=== PATIENT | female | born 1980 | race Caucasian/White ===

== ENCOUNTER 2018-10-24 02:03 | Emergency (ER) | payer OTHER ==
[~2018-10-24] VITALS: Ht 172.7 cm; Wt 113.9 kg
--- NOTE | 2018-10-24 02:10 | NUR ---
PT RECEIVED AMBULATORY FROM HOME. BIB FAMILY, WITH STABLE GAIT, APPEARS ANXIOUS, C/O NAUSEA AND DIZZINESS FOR 3HRS CLOTH PRESSER ABLE TO SPEAK CLEARLY AND IN COMPLETE SENTENCES. AOX4 BUT EASILY GETS CONFUSED. STATES "DIZZY" DENIES TINNITUS, DENIES DIARRHEA, DENIES FEVERS/ CHILLS, DENIES RECENT TRAVEL, DENIES EARPAIN, DENIES CHST PAIN, DENIES LOC MD AT BEDSIDE FOR HX AND PHYSICAL
[2018-10-24] MEDS ORDERED: MECLIZINE HCL 25 MG TABLET PO ONE (02:30)
[2018-10-24] MEDS ORDERED: MECLIZINE HCL 25 MG TABLET ONE (02:32)
--- NOTE | 2018-10-24 02:35 | NUR ---
EKG NOTE: Test delayed, patient initially refused until education provided by MONIQUE.
--- NOTE | 2018-10-24 02:45 | NUR ---
RN MOBILE AT BEDSIDE PT NAD SIDERAILS UP X2, REASSURED ORTHOSTATICS FOLLOWS: SUPINE: 127/70MMHG HR 73 +STATES DIZZINESS SITTIN/64 MMHG HR 72 STANDIN/88MMHG HR 78 +STATES SOME DIZZINESS
[2018-10-24 03:01] LABS: BASOPHILS # (AUTO) 0.1 K/uL (0.0-8.0); BASOPHILS % (AUTO) 1.3 % (0.0-2.0); EOSINOPHILS # (AUTO) 0.2 K/uL (0.0-0.7); EOSINOPHILS % (AUTO) 2.5 % (0.0-7.0); HEMATOCRIT 36.5 % (31.2-41.9); HEMOGLOBIN 12.6 g/dL (10.9-14.3); LYMPHOCYTES # (AUTO) 2.7 K/uL (20.0-40.0); MEAN CORPUSCULAR HEMOGLOBIN 28.6 uug (24.7-32.8); MEAN CORPUSCULAR HGB CONC 35 g/dL (32.3-35.6); MEAN CORPUSCULAR VOLUME 83.1 fL (75.5-95.3); MONOCYTES # (AUTO) 0.6 K/uL (2.0-10.0); MONOCYTES % (AUTO) 7.7 % (0.0-11.0); NEUTROPHILS # (AUTO) 4.3 K/uL (1.8-8.9); NEUTROPHILS % (AUTO) 54.5 % (38.5-71.5); PLATELET COUNT (AUTO) 266 K/uL (179-408)
[2018-10-24 03:15] LABS: CREATININE 0.6 mg/dL (0.6-1.3); POTASSIUM 3.6 mmol/L (3.5-5.1)
[2018-10-24 03:19] LABS: *URINE HCG, QUAL NEGATIVE (NEGATIVE)
[2018-10-24] MEDS ORDERED: ONDANSETRON ODT 4 MG TAB.RAPDIS SL ONE (03:45)
[2018-10-24] MEDS ORDERED: ONDANSETRON ODT 4 MG TAB.RAPDIS ONE (03:45)
--- NOTE | 2018-10-24 03:52 | NUR ---
PT NAD, ABLE TO TOLERATE MEDS ORDERED. Patient discharged to home in stable conditon. Written and verbal after care instructions given. Patient verbalizes understanding of instructions. AMBULATORY WITH STABLE GAIT. ALL BELONGINGS WITH PATIENT
[2018-10-24 03:55] VITALS: BP 103/64
== END 2018-10-24 03:55 | disposition home or self-care (01) ==
LOC: ER 02:07
DX: R42 Dizziness and giddiness (principal); R10.2 Pelvic and perineal pain
CPT/HCPCS: 36415; 84703; 85025; 93005; A4663; J8597; Q0162